=== PATIENT | male | born 1960 | race Caucasian/White ===

== ENCOUNTER 2019-05-04 08:31 | Day surgery (SDC) | payer BC ==
[~2019-05-04 08:31] MED LIST: Lactated Ringers 1,000 ML IV SCH; Sodium Chloride 0.9% 10 ML Syringe FLUSH PRN
[2019-05-04] MEDS ORDERED: Propofol 200 MG/20 ML SDV ONE ×2 (08:40→09:48)
--- NOTE | 2019-05-04 09:47 | PCM.PN ---
- General Info Date of Service: 05/04/19 - Review of Systems Systems Review Comment:: 59-year-old male referred for screening colonoscopy. He states his last colonoscopy was about 10 years ago. He states this exam was normal. The patient has noticed a slight increasing constipation recently. He denies any rectal bleeding. He is medically stable to proceed today. His recent history and physical is reviewed and no significant changes are noted. I have discussed the proposed colonoscopy with the patient. Risks such as but not limited to bleeding and GI injury reviewed. He agrees to proceed. - Patient Data Vitals - Most Recent: Last Vital Signs Temp 97.1 F 05/04/19 09:04 Pulse 60 05/04/19 09:04 Resp 20 05/04/19 09:04 BP 138/90 05/04/19 09:04 Pulse Ox 99 05/04/19 09:04 Weight - Most Recent: 88.451 kg Med Orders - Current: Current Medications Lactated Ringer's (Ringers, Lactated) 1,000 mls @ 125 mls/hr IV ASDIRECTED MADELINE Last Admin: 05/04/19 09:34 Dose: 125 mls/hr Sodium Chloride (Saline Flush) 10 ml FLUSH ASDIRECTED PRN PRN Reason: Keep Vein Open Discontinued Medications Propofol (Diprivan 20 Ml) Confirm Administered Dose 400 mg .ROUTE .STK-MED ONE Stop: 05/04/19 08:41 Sepsis Event Note - Focused Exam Vital Signs: Vital Signs Temp Pulse Resp BP Pulse Ox 05/04/19 09:04 97.1 F 60 20 138/90 99 Date Exam was Performed: 05/04/19 Time Exam was Performed: 09:45 - Problem List Review Problem List Initiated/Reviewed/Updated: Yes - Assessment Assessment:: colon cancer screening - Plan Plan:: colonoscopy
--- NOTE | 2019-05-04 10:20 | PCM.OPNOTE ---
- General Post-Op/Procedure Note Date of Surgery/Procedure: 05/04/19 Operative Procedure(s): Colonoscopy Findings: moderate sigmoid diverticulosis without inflammation Pre Op Diagnosis: change in bowel habits Post-Op Diagnosis: sigmoid diverticulosis Anesthesia Technique: MAC Primary Surgeon: Scott Padilla Pathology: none EBL in mLs: 0 Complications: None Condition: Good
--- NOTE | 2019-05-04 12:32 | OR ---
Date of Procedure: 05/04/2019 PREOPERATIVE DIAGNOSIS: Change in bowel habits. POSTOPERATIVE DIAGNOSES: Sigmoid diverticulosis and internal hemorrhoids. OPERATIONS PERFORMED: Colonoscopy. INDICATIONS FOR SURGERY: This 59-year-old male has noted a change in bowel habits with some increasing constipation recently. It has also been approximately 10 years since his last colonoscopy. FINDINGS: No polyps were seen on today's exam. The patient does have a moderate degree of diverticulosis in the sigmoid region. No acute inflammation or evidence of complication is noted in this area. The remainder of the colon appears normal. The patient does have moderate-sized internal hemorrhoid. PROCEDURE IN DETAIL: The patient was taken to the operating room. He was given intravenous sedation, and with him in the left lateral decubitus position, digital rectal exam was performed. No rectal masses were noted. The Olympus colonoscope was inserted into the rectum. Retroflexed examination of the rectal canal was performed. The scope was then carefully advanced under direct visualization through the entire length of the colon until the cecum was reached. Cecal acquisition was confirmed by noting the normal internal cecal anatomy including the appendiceal orifice and ileocecal valve. The light was also noted to transilluminate the abdominal wall in the right lower quadrant. After examining the cecum, the scope was slowly withdrawn sequentially re- examining the colonic segments until the entire colon and rectum had been fully examined. The scope was removed and the patient was taken from the operating room in satisfactory condition. ESTIMATED BLOOD LOSS: 0. COMPLICATIONS: None. PROGNOSIS: Good. CARMELO Padilla MD /[id number]
== END 2019-05-04 11:30 | disposition home or self-care (01) ==
LOC: LL.SDS 08:31
PROVIDERS: ATTEND Surgery
DX: K57.30 Diverticulosis of large intestine without perforation or abscess without bleeding (principal); K64.8 Other hemorrhoids; I10 Essential (primary) hypertension; E78.2 Mixed hyperlipidemia; Z88.0 Allergy status to penicillin; Z79.899 Other long term (current) drug therapy; Z87.891 Personal history of nicotine dependence; Z79.82 Long term (current) use of aspirin; Z98.890 Other specified postprocedural states
CPT/HCPCS: J2704; J7120